=== PATIENT | male | born 1975 | race Caucasian/White ===

== ENCOUNTER 2016-06-29 23:15 | Emergency (ER) | payer OTHER | END 2016-06-30 02:10 | disposition home or self-care (01) | LOC: FER 23:15 | DX: M10.072 Idiopathic gout, left ankle and foot (principal); I10 Essential (primary) hypertension; R26.2 Difficulty in walking, not elsewhere classified; F17.210 Nicotine dependence, cigarettes, uncomplicated; Z79.899 Other long term (current) drug therapy | CPT/HCPCS: J1885 ==

== ENCOUNTER 2021-09-20 16:34 | Emergency (ER) | payer OTHER ==
[2021-09-20 19:40] LABS: BASOPHIL 0.8 % (0-2); EOSINOPHIL 4.9 % (0-5); HCT 42.9 % (42.0-52.0); HGB 14.1 g/dl (13.2-18.0); MCHC 32.9 g/dL (32.0-36.0); MCV 91.3 fL (78.0-100.0); MONOCYTE 6.1 % (0-12); MPV 10.4 fL (6.0-9.5); NRBC 0; PLT 149 K/uL (150-400); RDW 11.8 % (11.5-14.0)
[2021-09-20 19:42] LABS: LYMPHOCYTE 30.9 % (15-48)
[2021-09-20 19:57] LABS: BUN/CREAT RATIO (CALC) 8.8 RATIO; CREATININE 1.36 mg/dL (0.67-1.17); POTASSIUM 4.5 mmol/L (3.5-5.1)
[2021-09-20] MEDS ORDERED: XARELTO15 MG PO (20:20)
== END 2021-09-20 20:32 | disposition home or self-care (01) ==
LOC: FER 16:34
PROVIDERS: Nurse Practitioner Family
DX: I82.411 Acute embolism and thrombosis of right femoral vein (principal); I82.451 Acute embolism and thrombosis of right peroneal vein; I82.441 Acute embolism and thrombosis of right tibial vein; I10 Essential (primary) hypertension; Z79.899 Other long term (current) drug therapy
CPT/HCPCS: 36415; 80048; 85025; 85730; 93971